=== PATIENT | female | born 1945 ===

== ENCOUNTER 2016-08-20 07:15 | Day surgery (SDC) | payer MEDICARE ==
[2016-04-03 22:35] VITALS: BMI 28.5
[2016-08-20] MEDS ORDERED: Midazolam 2 MG/2 ML VIAL ONE (08:10)
[2016-08-20] MEDS ORDERED: Propofol 10 mg/ml Inj (20 ML) ONE (08:10)
== END 2016-08-20 10:00 | disposition home or self-care (01) ==
LOC: C.ENDO 07:15
PROVIDERS: ATTEND Internal Medicine Gastroenterology
DX: K57.90 Diverticulosis of intestine, part unspecified, without perforation or abscess without bleeding (principal); Z90.49 Acquired absence of other specified parts of digestive tract
CPT/HCPCS: 45380; J2250; J2704